=== PATIENT | female | born 1980 | race Caucasian/White ===

== ENCOUNTER 2016-06-24 17:59 | Emergency (ER) | payer OTHER ==
[2016-06-24 19:40] VITALS: BP 121/75
[2016-06-24] MEDS ORDERED: Sulfamethox/Trimethoprim DS 800/160* TAB PO ONE (19:48)
--- NOTE | 2016-06-24 19:51 | UC ---
Skin Complaint HPI - HPI Summary HPI Summary: 2 nights ago she thinks she was bitten by an insect above left eyebrow. Woke in AM with a puncture and swelling. Worsening pain, swelling over the next 2d. Now scabbed, tender. AFraid it might continue to get worse. No drainage. No vision changes - History of Current Complaint Chief Complaint: UCSkin Time Seen by Provider: 06/24/16 19:26 Stated Complaint: SKIN CONCERN Hx Obtained From: Patient Hx Last Menstrual Period: 06/11/16 Onset/Duration: Sudden Onset, Lasting Days - 3 Timing: Constant Onset Severity: Mild Current Severity: Mild Location: Other - above left eyebrow Character: Swelling, Raised, Painful Aggravating: Nothing Alleviating: Nothing Associated Signs & Symptoms: Positive: Tenderness Related History: Insect Bite/Sting - Allergy/Home Medications Allergies/Adverse Reactions: Allergies Allergy/AdvReac Type Severity Reaction Status Date / Time No Known Allergies Allergy Verified 06/24/16 19:35 Home Medications: Home Medications Diphenhydramine HCl [Benadryl Allergy] 25 - 50 mg PO Q6H PRN 06/24/16 [History Confirmed 06/24/16] Rizatriptan ODT (NF) [Maxalt-CAR SUPPLIER (NF)] 10 mg PO SEE INSTRUCTIONS PRN 06/24/16 [ History Confirmed 06/24/16] Review of Systems Constitutional: Negative Skin: Other - scab and swelling face Eyes: Negative ENT: Negative Respiratory: Negative Cardiovascular: Negative Gastrointestinal: Negative Genitourinary: Negative Motor: Negative Neurovascular: Negative Musculoskeletal: Negative Neurological: Negative Psychological: Negative All Other Systems Reviewed And Are Negative: Yes PMH/Surg Hx/FS Hx/Imm Hx Previously Healthy: Yes Endocrine History Of: Denies: Diabetes Cardiovascular History Of: Denies: Hypertension, Pacemaker/ICD GI/ History Of: Denies: Renal Disease Cancer History Of: Denies: Breast Cancer - Surgical History Surgical History: Yes Surgery Procedure, Year, and Place: BREAST REDUCTION. PALLETE SURGERY A CHILD - Family History Known Family History: Positive: Hypertension - Social History Occupation: Employed Full-time Lives: With Family Alcohol Use: Occasionally Substance Use Type: None Smoking Status (MU): Never Smoked Tobacco - Immunization History Most Recent Influenza Vaccination: April 2016 Physical Exam Triage Information Reviewed: Yes Appearance: Well-Appearing, No Pain Distress, Well-Nourished Vital Signs: Initial Vital Signs Temp 98.2 F 06/24/16 19:33 Pulse 62 06/24/16 19:33 Resp 16 06/24/16 19:33 BP 121/75 06/24/16 19:33 Pulse Ox 98 06/24/16 19:33 Vital Signs Reviewed: Yes Eye Exam: Normal Eyes: Positive: Conjunctiva Clear Neck exam: Normal Neck: Positive: Supple Respiratory Exam: Normal Cardiovascular Exam: Normal Musculoskeletal Exam: Normal Neurological Exam: Normal Psychological Exam: Normal Skin Exam: Other - small scab above left eyebrow, about 1.5cm diam. Slight surrounding redness and swelling. No swelling of eyelids. NO drainage Course/Dx - Differential Diagnoses - Skin Complaint Differential Diagnoses: Cellulitis - Diagnoses Provider Diagnoses: cellulitis Discharge - Discharge Plan Condition: Stable Disposition: HOME Prescriptions: Sulfamethox/Trimethoprim DS* [Bactrim DS 800/160 TAB*] 1 tab PO BID #14 tab Patient Education Materials: Cellulitis (ED) Referrals: Juarez Fernandes MD [Primary Care Provider] - Additional Instructions: warm compresses soap and water cleansing
== END 2016-06-24 20:01 | disposition home or self-care (01) ==
LOC: UCCORT 17:59
DX: L03.211 Cellulitis of face (principal)
CPT/HCPCS: 99212; A9270-GY; G0463

== ENCOUNTER 2017-05-05 14:16 | Emergency (ER) | payer OTHER ==
[2017-05-05 16:17] VITALS: BP 104/73
--- NOTE | 2017-05-05 16:26 | UC ---
Throat Pain/Nasal Jacobo HPI - HPI Summary HPI Summary: Started mid-March URI but with persistent congestion and sinus pain. No ear pain. Congestion with post nasal drip. - History of Current Complaint Chief Complaint: UCGeneralIllness Stated Complaint: SINUS Hx Obtained From: Patient Hx Last Menstrual Period: 05/03/17 ?: No Onset/Duration: Sudden Onset, Still Present, Worse Since - Sinus pain worse the last 2 days. Severity: Moderate Cough: Nonproductive Associated Signs & Symptoms: Positive: Sinus Discomfort, Nasal Discharge. Negative: Wheezing - Allergies/Home Medications Allergies/Adverse Reactions: Allergies Allergy/AdvReac Type Severity Reaction Status Date / Time No Known Allergies Allergy Verified 05/05/17 16:17 Home Medications: Home Medications Topiramate TAB(*) [Topamax 25 MG tab] 50 mg PO BEDTIME 05/05/17 [History Confirmed 05/05/17] PMH/Surg Hx/FS Hx/Imm Hx Previously Healthy: Yes Neurological History: Migraine - Surgical History Surgical History: Yes Surgery Procedure, Year, and Place: BREAST REDUCTION. PALLETE SURGERY A CHILD - Family History Known Family History: Positive: Hypertension Negative: Cardiac Disease, Diabetes - Social History Occupation: Employed Full-time Lives: With Family Alcohol Use: Occasionally Substance Use Type: None Smoking Status (MU): Never Smoked Tobacco - Immunization History Most Recent Influenza Vaccination: 04/2017 Review of Systems Constitutional: Chills ENT: Nasal Discharge, Sinus Congestion, Sinus Pain/Tenderness Respiratory: Cough Is Patient Immunocompromised?: No All Other Systems Reviewed And Are Negative: Yes Physical Exam Triage Information Reviewed: Yes Appearance: No Pain Distress, Well-Nourished, Ill-Appearing Vital Signs: Initial Vital Signs Temp 97.7 F 05/05/17 16:10 Pulse 75 05/05/17 16:10 Resp 16 05/05/17 16:10 BP 104/73 05/05/17 16:10 Pulse Ox 98 05/05/17 16:10 Vital Signs Reviewed: Yes Eyes: Positive: Conjunctiva Clear ENT: Positive: Nasal congestion - with allergic changes., TMs normal Neck exam: Normal Respiratory: Positive: Lungs clear, Wheezing - expiratory wheezes with coughing. Cardiovascular Exam: Normal Musculoskeletal Exam: Normal Neurological Exam: Normal Psychological Exam: Normal Skin Exam: Normal Throat Pain/Nasal Course/Dx - Differential Dx/Diagnosis Differential Diagnosis/HQI/PQRI: Pharyngitis, Sinusitis, URI Provider Diagnoses: Acute URI. Acute sinusitis. Allergic rhinitis. Acute bronchospasm Discharge - Discharge Plan Condition: Stable Disposition: HOME Prescriptions: Amoxicillin PO (*) [Amoxicillin 875 MG (*)] 875 mg PO BID #20 tab Fluconazole [Fluconazole 150 mg tab] 150 mg PO DAILY #1 tab predniSONE TAB* [Deltasone TAB*] 20 mg PO DAILY #18 tab Patient Education Materials: Upper Respiratory Infection (ED), Sinusitis (ED), Amoxicillin (By mouth), Bronchospasm (ED), Prednisone (By mouth) Referrals: Juarez Fernandes MD [Primary Care Provider] -
== END 2017-05-05 16:40 | disposition home or self-care (01) ==
LOC: UCCORT 14:16
DX: J01.90 Acute sinusitis, unspecified (principal); J30.9 Allergic rhinitis, unspecified; J98.01 Acute bronchospasm; G43.909 Migraine, unspecified, not intractable, without status migrainosus
CPT/HCPCS: 99212; G0463